=== PATIENT | male | born 1970 | race Caucasian/White ===

== ENCOUNTER → 2016-05-06 | Outpatient (CLI) | payer OTHER, BC ==
[~2016-05-06] MED LIST: LISI-725 PO; OXYC-106 PO; SERT50TA PO
--- NOTE | 2016-05-06 10:16 | DIAGNOSTIC IMAGING REPORT ---
ORBIT RADIOGRAPHS 3 VIEWS HISTORY: MRI pre-MRI screening. COMPARISON: None. FINDINGS: There are no radiopaque foreign bodies identified within the orbits. IMPRESSION: No radiopaque foreign bodies identified within the orbits. Electronically signed by: Andrea Voss M.D. 05/06/2016 10:14 AM
--- NOTE | 2016-05-06 11:28 | DIAGNOSTIC IMAGING REPORT ---
MRI OF THE LEFT KNEE WITHOUT CONTRAST CLINICAL HISTORY: Left knee pain. COMPARISON STUDY: Left knee radiographs April 22, 2016. TECHNIQUE: Utilizing a 1.5 Lorna magnet and dedicated coil, multiplanar, multiecho imaging of the left knee was performed without intravenous or intraarticular contrast. FINDINGS: Alignment of the left knee is anatomic. There is a trace joint effusion. The anterior and posterior cruciate ligaments are intact. There is fluid along the medial and lateral aspects of the medial collateral ligament. The ligament itself appears somewhat thin but is intact. The lateral collateral ligament complex is intact. There is no lateral meniscal tear. There is an oblique tear of the body and posterior horn of the medial meniscus with an associated flap tear which extends into the meniscal gutter. There is mild chondrosis within the medial compartment. No marrow replacement is present. There is no significant marrow edema. IMPRESSION: 1. Oblique tear of the body and posterior horn of the medial meniscus with associated meniscal flap tear with inferior extension into the meniscal gutter. 2. Findings consistent with an MCL sprain, likely grade I or 2. No complete MCL tear. 3. Mild chondrosis within the medial compartment. Electronically signed by: Julian Bradford M.D. 05/06/2016 11:27 AM
== END | disposition home or self-care (01) ==
LOC: C.MRIBC 09:46
PROVIDERS: ATTEND Physical Medicine & Rehabilitation Sports Medicine
DX: S83.242A Other tear of medial meniscus, current injury, left knee, initial encounter (principal); X58.XXXA Exposure to other specified factors, initial encounter; M25.562 Pain in left knee; Z13.89 Encounter for screening for other disorder

== ENCOUNTER → 2016-06-08 | Day surgery (SDC) | payer OTHER, BC ==
[2016-05-17 11:40] LABS: BLOOD UREA NITROGEN 12 mg/dl (7-18); BUN/CREATININE RATIO 14.7 (10-20); CALCIUM 9.6 mg/dl (8.5-10.1); CARBON DIOXIDE 28 mmol/L (21-32); CHLORIDE 105 mmol/L (98-107); CREATININE 0.83 mg/dl (0.60-1.40); GLUCOSE 101 mg/dl (70-99); POTASSIUM 4.5 mmol/L (3.5-5.1); SODIUM 140 mmol/L (136-145)
[2016-05-17 11:43] LABS: ALB/GLOB RATIO 1.1 (0.9-2); ALKALINE PHOSPHATASE 68 U/L (45-117); ALT/SGPT 71 U/L (12-78); AST/SGOT 29 U/L (15-37)
[2016-05-17 11:57] LABS: HEMATOCRIT 42.9 % (42-52); MEAN CELL VOLUME 90.3 fL (80-100); MEAN CORPUSCULAR HEMOGLOBIN 31.2 pg (25-34); MEAN CORPUSCULAR HGB CONC 34.5 g/dl (32-36); MEAN PLATELET VOLUME 11.4 fL (7.4-10.4); PLATELET COUNT 186 K/uL (130-400); RED BLOOD COUNT 4.75 M/uL (4.7-6.1); WHITE BLOOD COUNT 6.35 K/uL (4.8-10.8)
[2016-05-26 10:21] VITALS: Ht 185.4 cm; Wt 122.7 kg
[~2016-06-08] VITALS: Ht 185.4 cm; Wt 122.7 kg
[~2016-06-08] MED LIST changes: +ATROPINE SULFATE 0.1 MG/ML 5ML SYR IV PRN; +BUPIVACAINE/EPINEPHRINE 0.5% MPF 1:200,000 30 ML VIAL ONE; +CEFAZOLIN 3000 MG/65 ML D5W IV SCH; +DEXAMETHASONE SOD INJ 4 MG/ML VIAL ONE; +EpHEDrine SULFATE INJ 50 MG/ML AMP IV PRN; +FENTANYL CITRATE INJ 50 MCG/1 ML 2 ML VIAL ONE; +HYDROmorphone INJ 1 MG/ML SYR IV PRN; +KETAMINE HCL INJ 50 MG/ML 10 ML VIAL ONE; +KETOROLAC TROMETHAMINE 30 MG/ML VIAL ONE; +LACTATED RINGER'S 1000ML 1,000 ML IV SCH; +LIDOCAINE HCL 2% 2 ML VIAL (20MG/ML) ONE; +MIDAZOLAM HCL 1 MG/ML 2ML VIAL ONE; +MoRPHine SULFATE PF 1 MG/ML 10 ML AMP/VIAL ONE; +ONDANSETRON INJ 2 MG/ML 2 ML VIAL IV PRN; +ONDANSETRON INJ 2 MG/ML 2 ML VIAL ONE; +OXYCODONE/ACETAMINOPHEN 5-325 TAB PO PRN; +PROPOFOL IV EMULSION 10 MG/ML 20 ML VIAL IV ONE; +SODIUM CHLORIDE 0.9% 1000ML 1,000 ML IV SCH
--- NOTE | 2016-06-08 06:46 | History & Physical Bridge Note ---
H&P Re-Evaluation Bridge Note: I have examined the patient, reviewed the History & Physical and in the interval since the performance of the History & Physical I have noted the following changes of clinical significance: No changes noted
--- NOTE | 2016-06-08 06:48 | Discharge Instructions ---
Discharge Instructions Visit Reason for Visit: Left Knee Medial Meniscus Tear Discharge Discharge Diagnosis / Problem: same/early djd Discharge Goals Goal(s): Decrease discomfort, Improve function Medications Stopped Medications Name(s): na Restart Stopped Medication(s): use all scripts as directed Activity Recommendations Activity Limitations: as noted below Lifting Limitations: until after follow-up appointment Exercise/Sports Limitations: until after follow-up appointment May Resume Sexual Activity: when tolerated Shower/Bathe: keep incision dry Driving or Machine Use: resume 1 day after discharge Weightbearing Status: Left weightbearing (as tolerated) Anesthesia . Post Anesthesia Instructions: If you have had General Anesthesia or IV Sedation: * Do not drive today. * Resume driving when surgeon permits. * Do not make important decisions or sign legal documents today. * Call surgeon for: 1. Temperature elevations greater than 101 degrees F. 2. Uncontrollable pain. 3. Excessive bleeding. 4. Persistent nausea and vomiting. 5. Medication intolerance (nausea, vomiting or rash). * For nausea and vomiting use only clear liquids such as: tea, soda, bouillon until nausea subsides, then gradually increase diet as tolerated. * If you have any concerns or questions, call your surgeon's office. If physician is unavailable and it is an emergency, call 911 or go to the nearest emergency room. . Instructions / Follow-Up Instructions / Follow-Up The following are instructions to follow after your Arthroscopic Knee Surgery. ACTIVITY RECOMMENDATIONS: * Minimize activity until your first visit after surgery. * No excessive walking, jogging, sports or laboring. * Return to activity is individualized. Most patients are able to return to every day activities within one month. * Return to sports or intensive labor usually occurs at 2-3 months. * Driving is not permitted until at least your first postoperative visit at a minimum. Please ask your doctor when it is safe to resume driving. If you have an automatic vehicle and your left leg has been operated on, then you may begin driving as soon as you are comfortable and can drive safely. SCHOOL/WORK RECOMMENDATIONS: * You may return to sedentary work or school when you are feeling more comfortable. This is usually 3-7 days after surgery. * Expect increased discomfort with increased activity. Continue to elevate and ice the leg as much as possible. MEDICATIONS: * You will have a prescription for pain medication and an anti-inflammatory medication after surgery. * Use the pain medication for severe pain and the anti-inflammatory for less severe pain. Once the pain medication has run out, try to use the anti-inflammatory medication. If this is not effective, contact the office for assistance. * The pain medication may cause nausea, constipation and drowsiness. You should see how they affect you before driving or similar activity. * The anti-inflammatory medication may cause stomach upset and bleeding. If this occurs let your doctor know immediately . * Take a stool softener like Colace or a laxative like Senokot to prevent constipation. DIET: * Resume previous diet. SPECIAL CARE: ICE: You have the option of an ice cooler, gel packs or ice bags. * If you have an ice cooler, refer to the instructions for that device. The ice cooler may be used continuously. * If you do not have an ice cooler, you will need to use ice bags or gel packs. Do not apply ice directly to the skin. Use a thin dressing or eunice shirt between the skin and ice bag. Apply ice for 20-30 minutes and repeat every 2-4 hours. This is especially important for the first 7-10 days after surgery. Once the pain improves, use ice as needed. ELEVATION: * Keep your leg elevated at or above the level of your heart as much as possible. * Expect some increased discomfort and swelling if you are standing for any length of time. * When lying down, avoid placing anything under your knee. Rather, prop your leg up by placing several pillows under your heel or calf. DRESSING: * Your dressing will be changed at your first therapy appointment approximately 4-5 days after surgery. Band-aids, tape strips or gauze may be applied. You may then change your dressing daily. * Reapply dressing followed by the Tim wrap or Tubi-stage producer stockinet and EBIce cooling pad (if chosen). * Always wash your hands prior to touching the incision area. * Once the stitches are removed, you may leave the wound open to air or cover with an Tim wrap or Tubi-stage producer stockinet. * If you have been given a white elastic stocking (DERREK hose), wear as much as possible for the first 1-3 weeks depending on swelling. * Expect some bloody drainage for the first few days after surgery. * Leave the tape strips, if present, in place for 5-7 days. * Band-aids and gauze may be changed daily. CRUTCHES: * You will need to use crutches after surgery. * You may gradually progress to full weight bearing as tolerated and wean off the crutches unless otherwise advised. * Your therapist can provide assistance weaning off crutches. * Patients who have a microfracture done may need to be toe-touch weight- bearing for 4-6 weeks. BATHING: * You may shower or sponge-bathe immediately after surgery. * The dressing will need to be covered with a plastic bag or plastic wrap until the dressing is changed on the fourth or fifth day after surgery. * Once the dressing has been changed on the fourth or fifth day after surgery, you may shower and get the incision wet. * Wash with regular soap and water. * Do not bathe (submerge the incision), soak, swim or use a hot tub until the incision is completely healed over with normal skin and the doctor has given the OK to proceed. * There is no need to apply any ointments, powders or salves to your incision. * Do not apply alcohol or hydrogen peroxide directly to the incision. * Diluted peroxide (50:50 mixture with sterile saline) may be used to clean dried blood from around the incision area. BRACE: * Bracing is generally not needed after routine Arthroscopic Knee surgery. THERAPY: * You will begin therapy four or five days after surgery. * Organized therapy with the therapist is important for the first 4-6 weeks after surgery. During that time you will attend therapy 1-3 times per week. * You will also need to do daily exercises for range of motion and strength as instructed. PROBLEMS/QUESTIONS: * If you have any problems such as severe pain, numbness, tingling or high fevers or if you have any questions, please contact the office at [phone]. * It is not uncommon to have some numbness and tingling after the surgery especially if you have had a nerve block done. This should gradually improve over the first 1- 2 days. If this persists longer or worsens please contact the office. FOLLOW UP VISIT: * If not already scheduled, please call the office at to schedule a follow-up appointment for 10 days, 6 weeks and 3 months after surgery. Diet Recommendations Recommended Home Diet: resume previous diet Procedures Procedures Performed: see op note Medical Emergencies . Who to Call and When: Medical Emergencies: If at any time you feel your situation is an emergency, please call 911 immediately. . Non-Emergent Contact . . "Provider Documentation" section prepared by Bhavik Barrett.
--- NOTE | 2016-06-08 07:01 | Discharge Instructions ---
Discharge Instructions Visit Reason for Visit: Left Knee Medial Meniscus Tear Discharge Discharge Diagnosis / Problem: same /djd Discharge Goals Goal(s): Decrease discomfort, Improve function Medications Stopped Medications Name(s): na Restart Stopped Medication(s): use all scripts as directed Activity Recommendations Activity Limitations: as noted below Lifting Limitations: until after follow-up appointment Exercise/Sports Limitations: until after follow-up appointment May Resume Sexual Activity: when tolerated Shower/Bathe: keep incision dry Driving or Machine Use: resume 1 day after discharge Weightbearing Status: Left weightbearing (as tolerated) Anesthesia . Post Anesthesia Instructions: If you have had General Anesthesia or IV Sedation: * Do not drive today. * Resume driving when surgeon permits. * Do not make important decisions or sign legal documents today. * Call surgeon for: 1. Temperature elevations greater than 101 degrees F. 2. Uncontrollable pain. 3. Excessive bleeding. 4. Persistent nausea and vomiting. 5. Medication intolerance (nausea, vomiting or rash). * For nausea and vomiting use only clear liquids such as: tea, soda, bouillon until nausea subsides, then gradually increase diet as tolerated. * If you have any concerns or questions, call your surgeon's office. If physician is unavailable and it is an emergency, call 911 or go to the nearest emergency room. . Instructions / Follow-Up Instructions / Follow-Up The following are instructions to follow after your Arthroscopic Knee Surgery. ACTIVITY RECOMMENDATIONS: * Minimize activity until your first visit after surgery. * No excessive walking, jogging, sports or laboring. * Return to activity is individualized. Most patients are able to return to every day activities within one month. * Return to sports or intensive labor usually occurs at 2-3 months. * Driving is not permitted until at least your first postoperative visit at a minimum. Please ask your doctor when it is safe to resume driving. If you have an automatic vehicle and your left leg has been operated on, then you may begin driving as soon as you are comfortable and can drive safely. SCHOOL/WORK RECOMMENDATIONS: * You may return to sedentary work or school when you are feeling more comfortable. This is usually 3-7 days after surgery. * Expect increased discomfort with increased activity. Continue to elevate and ice the leg as much as possible. MEDICATIONS: * You will have a prescription for pain medication and an anti-inflammatory medication after surgery. * Use the pain medication for severe pain and the anti-inflammatory for less severe pain. Once the pain medication has run out, try to use the anti-inflammatory medication. If this is not effective, contact the office for assistance. * The pain medication may cause nausea, constipation and drowsiness. You should see how they affect you before driving or similar activity. * The anti-inflammatory medication may cause stomach upset and bleeding. If this occurs let your doctor know immediately . * Take a stool softener like Colace or a laxative like Senokot to prevent constipation. DIET: * Resume previous diet. SPECIAL CARE: ICE: You have the option of an ice cooler, gel packs or ice bags. * If you have an ice cooler, refer to the instructions for that device. The ice cooler may be used continuously. * If you do not have an ice cooler, you will need to use ice bags or gel packs. Do not apply ice directly to the skin. Use a thin dressing or eunice shirt between the skin and ice bag. Apply ice for 20-30 minutes and repeat every 2-4 hours. This is especially important for the first 7-10 days after surgery. Once the pain improves, use ice as needed. ELEVATION: * Keep your leg elevated at or above the level of your heart as much as possible. * Expect some increased discomfort and swelling if you are standing for any length of time. * When lying down, avoid placing anything under your knee. Rather, prop your leg up by placing several pillows under your heel or calf. DRESSING: * Your dressing will be changed at your first therapy appointment approximately 4-5 days after surgery. Band-aids, tape strips or gauze may be applied. You may then change your dressing daily. * Reapply dressing followed by the Tim wrap or Tubi-buoy tender stockinet and EBIce cooling pad (if chosen). * Always wash your hands prior to touching the incision area. * Once the stitches are removed, you may leave the wound open to air or cover with an Tim wrap or Tubi-buoy tender stockinet. * If you have been given a white elastic stocking (DERREK hose), wear as much as possible for the first 1-3 weeks depending on swelling. * Expect some bloody drainage for the first few days after surgery. * Leave the tape strips, if present, in place for 5-7 days. * Band-aids and gauze may be changed daily. CRUTCHES: * You will need to use crutches after surgery. * You may gradually progress to full weight bearing as tolerated and wean off the crutches unless otherwise advised. * Your therapist can provide assistance weaning off crutches. * Patients who have a microfracture done may need to be toe-touch weight- bearing for 4-6 weeks. BATHING: * You may shower or sponge-bathe immediately after surgery. * The dressing will need to be covered with a plastic bag or plastic wrap until the dressing is changed on the fourth or fifth day after surgery. * Once the dressing has been changed on the fourth or fifth day after surgery, you may shower and get the incision wet. * Wash with regular soap and water. * Do not bathe (submerge the incision), soak, swim or use a hot tub until the incision is completely healed over with normal skin and the doctor has given the OK to proceed. * There is no need to apply any ointments, powders or salves to your incision. * Do not apply alcohol or hydrogen peroxide directly to the incision. * Diluted peroxide (50:50 mixture with sterile saline) may be used to clean dried blood from around the incision area. BRACE: * Bracing is generally not needed after routine Arthroscopic Knee surgery. THERAPY: * You will begin therapy four or five days after surgery. * Organized therapy with the therapist is important for the first 4-6 weeks after surgery. During that time you will attend therapy 1-3 times per week. * You will also need to do daily exercises for range of motion and strength as instructed. PROBLEMS/QUESTIONS: * If you have any problems such as severe pain, numbness, tingling or high fevers or if you have any questions, please contact the office at [phone]. * It is not uncommon to have some numbness and tingling after the surgery especially if you have had a nerve block done. This should gradually improve over the first 1- 2 days. If this persists longer or worsens please contact the office. FOLLOW UP VISIT: * If not already scheduled, please call the office at to schedule a follow-up appointment for 10 days, 6 weeks and 3 months after surgery. Diet Recommendations Recommended Home Diet: resume previous diet Procedures Procedures Performed: see op note Pending Studies Studies pending at discharge: no Medical Emergencies . Who to Call and When: Medical Emergencies: If at any time you feel your situation is an emergency, please call 911 immediately. . Non-Emergent Contact Non-Emergency issues call your: Specialist Call Non-Emergent contact if: temperature is above 101.5 . . "Provider Documentation" section prepared by Bhavik Barrett.
--- NOTE | 2016-06-08 07:35 | [facility] Post Operative Brief Note ---
Immediate Operative Summary Operative Date Jun 08, 2016. Pre-Operative Diagnosis Left Knee Medial Meniscus Tear Post-Operative Diagnosis Same/ early djd/synovial impingement Procedure(s) Performed Left Knee Arthroscopy, Partial Medial Meniscectomy, Chondroplasty of Medial and Lateral Femoral Condyle, Anterior Synovectomy, Exam Under Anesthesia Surgeon Dr. Barrett Carpenter Assistant Surgeon(s) Marj Schulz PA-C Estimated Blood Loss Trace Findings see op note Fluids (cc crystalloids) 800cc Specimens None Drains none Anesthesia LMA Complication(s) None Disposition Recovery Room / PACU
--- NOTE | 2016-06-08 07:53 | OPERATIVE REPORT ---
DATE OF OPERATION: 06/08/2016 PREOPERATIVE DIAGNOSIS: Medial meniscus tear with early OA left knee. POSTOPERATIVE DIAGNOSIS: Same with articular disease medial and lateral femoral condyle and inferior aspect of patella and a degenerated medial meniscus tear. OPERATION PERFORMED: 1. Exam under anesthesia. 2. Diagnostic arthroscopy. 3. Arthroscopic chondroplasty medial femoral condyle inferior patella and lateral femoral condyle anterior synovectomy. SURGEON: Dr. Barrett. HAND TUBE BENDER: Tj Schulz PA-C. No resident or fellow available. OPERATION: The patient was appropriately identified, site verified, consent verified, 3 grams of Ancef confirmed as being given. The left lower extremity was examined revealing no ligamentous instability. It was then sterilely injected with 20 mL 0.5% Marcaine plain and 5 mg of Duramorph for postoperative pain control. The knee was then prepped and draped in usual routine fashion. The inferomedial and inferolateral portals were then marked and injected with 4 mL 0.5% Marcaine with epinephrine. The knee was then scoped through an inframedial and inferolateral portal, extensive anterior hyperemic traumatic medial plica which was resected anterior synovitis was resected. There was some articular disease at the inferior pole of the patella which was resected. The lateral compartment had healthy lateral meniscus. Had a small grade 2 area of the lateral femoral condyle which was debrided to a stable rim. There was no exposed bone. The ACL and PCL were normal. Again, the lateral meniscus was normal. The medial meniscus had a degenerated flap tear which was incarcerated under the tibial surface, it was reduced and partial medial meniscectomy carried out to a stable balanced contoured rim with hand and power instrumentation approximately 35% of the posterior half of the meniscus was removed. There was articular disease of the medial femoral condyle which was incidentally debrided as well to stable rim. There was no exposed bone. This was much more diffuse and was not a contained type lesion indicative of degenerative disease. The traumatic anterior synovitis was then resected clearing the patellofemoral joint as nicely. The procedure was then terminated after all instruments and fluid and free fragments were removed. The portals closed with 3-0 nylon, dressed with Xeroform, 4 x 4 gauze, sterile Webril, ABD pads and above knee DERREK stocking with weightbearing as tolerated. Deep venous thrombosis prophylaxis per protocol. Start PT tomorrow. May drive when not on narcotics. I attest to the content of the Intraoperative Record and any orders documented therein. Any exceptio ns are noted below.
[2016-06-08] MEDS: FENTANYL CITRATE INJ 50 MCG/1 ML 2 ML VIAL IV PRN ×4 (08:05→08:20)
--- NOTE | 2016-06-08 08:58 | Anesthesia Progress Nt - [facility] ---
Anesthesia Post Op Note Date & Time Jun 08, 2016 at 08:58 Vital Signs Pain Intensity: 2 Vital Signs Past 12 Hours Date Time Temp Pulse Resp B/P Pulse Ox O2 Delivery O2 Flow Rate FiO2 06/08/16 08:40 36.8 83 16 152/87 96 Room Air 06/08/16 08:28 145/91 06/08/16 08:27 84 15 95 06/08/16 08:27 84 15 06/08/16 08:26 37.0 06/08/16 08:23 158/96 06/08/16 08:22 85 19 95 06/08/16 08:22 88 19 06/08/16 08:18 157/93 06/08/16 08:17 88 10 06/08/16 08:17 88 10 93 06/08/16 08:14 149/97 06/08/16 08:13 164/98 06/08/16 08:12 85 13 06/08/16 08:12 86 13 98 06/08/16 08:08 163/97 06/08/16 08:07 83 12 06/08/16 08:07 83 12 99 06/08/16 08:03 161/103 06/08/16 08:02 86 16 06/08/16 08:02 83 16 99 06/08/16 07:58 158/101 06/08/16 07:57 94 13 06/08/16 07:57 93 13 98 06/08/16 07:53 159/115 06/08/16 07:52 100 19 06/08/16 07:52 102 19 98 06/08/16 07:48 156/103 06/08/16 07:47 97 14 06/08/16 07:47 97 14 98 06/08/16 07:45 37.1 92 16 162/103 97 Diffusion Mask 8 06/08/16 06:43 37.0 91 18 142/98 96 Room Air Notes Mental Status: alert / awake / arousable, participated in evaluation Pt Amnestic to Procedure: Yes Nausea / Vomiting: adequately controlled Pain: adequately controlled Airway Patency, RR, SpO2: stable & adequate BP & HR: stable & adequate Hydration State: stable & adequate Anesthetic Complications: no major complications apparent
[2016-06-08 09:26] VITALS: BP 128/76; PULSE 83; O2SAT 96
--- NOTE | 2016-06-08 10:32 | OPERATIVE REPORT ---
PREOPERATIVE DIAGNOSIS: Left knee medial meniscal tear. POSTOPERATIVE DIAGNOSIS: Left knee medial meniscal tear with articular disease of the medial and lateral femoral condyle and inferior aspects of the patella. PROCEDURE: Left knee arthroscopy, partial medial meniscectomy, chondroplasty of the medial femoral condyle, inferior patella, and lateral femoral condyle with anterior synovectomy. SURGEON: Dr. Barrett. ENGINEER STATION MAINLINE: Tj Schulz PA-C. HISTORY OF PRESENT ILLNESS: This 45-year-old white male presented to the office with complaints of left knee pain. He had tried conservative care measures without success. He did obtain an x-ray as well as MRI. He elected to proceed with surgical intervention after being educated about potential risks and outcomes. OPERATION: The patient was taken to the operating room where he was given general anesthetic. He was prepped and draped in the usual sterile fashion. Please see Dr. Barrett's operative report for specifics of the procedure. I was present for the entire case from initial patient positioning through final wound closure. Assistance was provided in patient positioning, arthroscopy, and final wound closure. The patient was taken to the recovery room in satisfactory condition.
== END | disposition home or self-care (01) ==
LOC: X.SURG 06:17
PROVIDERS: ATTEND Physical Medicine & Rehabilitation Sports Medicine
DX: M23.232 Derangement of other medial meniscus due to old tear or injury, left knee (principal); M17.9 Osteoarthritis of knee, unspecified; Z98.1 Arthrodesis status; I10 Essential (primary) hypertension; F32.9 Major depressive disorder, single episode, unspecified; Z98.890 Other specified postprocedural states